=== PATIENT | female | born 1980 | race Caucasian/White ===

== ENCOUNTER 2025-04-09 11:43 | Emergency (ER) | payer OTHER ==
[~2025-04-09] VITALS: Ht 165.1 cm; Wt 50.3 kg
[2025-04-09 13:41] VITALS: BP 110/75; TEMP 97.6; O2SAT 98
[2025-04-09] MEDS ORDERED: INDO50CA91 PO (13:56)
== END 2025-04-09 14:23 | disposition home or self-care (01) ==
LOC: M ED 11:43
DX: S53.402A Unspecified sprain of left elbow, initial encounter (principal); S46.092A Other injury of muscle(s) and tendon(s) of the rotator cuff of left shoulder, initial encounter; X58.XXXA Exposure to other specified factors, initial encounter; G43.909 Migraine, unspecified, not intractable, without status migrainosus; F10.10 Alcohol abuse, uncomplicated; Z88.0 Allergy status to penicillin; Z88.1 Allergy status to other antibiotic agents; Z79.899 Other long term (current) drug therapy; Y92.9 Unspecified place or not applicable; Y93.89 Activity, other specified; Y99.9 Unspecified external cause status